=== PATIENT | male | born 2000 | race Caucasian/White ===

== ENCOUNTER 2021-03-09 11:23 | Inpatient (IN) | payer MEDICAID, SELFPAY ==
[~2021-03-09] VITALS: Ht 180.3 cm; Wt 68.0 kg
[2021-03-09 11:23] VITALS: BP 112/56
--- NOTE | 2021-03-09 11:23 | NUR ---
BIBA TO BED 7
[2021-03-09] MEDS ORDERED: NACL 0.9% 1,000 ML IV ONE (11:30)
--- NOTE | 2021-03-09 11:50 | NUR ---
20 Y/O M BIBA FROM COUSIN'S HOUSE, PATIENT PRESENTS TO ED WITH TONIC CLONIC SEIZURE WITNESSED FOR 1 MINUTE. PT STATES HE HAS NO MEMORY OF WHAT HAPPENED BEFORE AND AFTER. DENIES N/V/D; SKIN IS PINK/WARM/DRY; AAOX2 UNABLE TO AMBULATE AT THIS TIME, RESTLESS AND TREMBLING; LUNGS CLEAR BL; HR EVEN AND TACHY 112; PT DENIES ANY FEVER, SOB, OR COUGH AT THIS TIME; PATIENT STATES PAIN OF 8/10 AT THIS TIME, CHEST PRESSURE; VSS; PATIENT POSITIONED FOR COMFORT; HOB ELEVATED; BEDRAILS UP X2; BED DOWN. ER MD MADE AWARE OF PT STATUS. GCS 14. NO MOUTH INJURIES UPON INSPECTION, PT DOES HAVE WHITE PUSTULES ON TONGUE. MINOR LAC ON R CHEEK. PMH: ASTHMA NKA MED: DENIES
[2021-03-09 12:21] LABS: BASOPHILS % (AUTO) 0.6 % (0.0-2.0); EOSINOPHILS # (AUTO) 0.1 K/uL (0-0.4); EOSINOPHILS % (AUTO) 2.2 % (0.0-4.0); HEMATOCRIT 39.6 % (36-52); HEMOGLOBIN 13.3 g/dL (12.0-18.0); LYMPHOCYTES # (AUTO) 2.1 K/uL (2.0-11.5); LYMPHOCYTES % (AUTO) 33.5 % (20.5-51.1); MEAN CORPUSCULAR HEMOGLOBIN 30 pg (27-31); MEAN CORPUSCULAR HGB CONC 34 g/dL (33-37); MEAN CORPUSCULAR VOLUME 87.4 fL (80-94); MONOCYTES # (AUTO) 0.4 K/uL (0.8-1.0); MONOCYTES % (AUTO) 6.3 % (1.7-9.3); NEUTROPHILS # (AUTO) 3.5 K/uL (1.8-7.7); NEUTROPHILS % (AUTO) 57.4 % (42.2-75.2); PLATELET COUNT (AUTO) 182 K/uL (140-450); RED BLOOD CELL COUNT(AUTO) 4.53 MIL/uL (4.20-6.10); RED CELL DISTRIBUTION WIDTH 12.7 % (11.6-13.7); WHITE BLOOD COUNT (AUTO) 6.2 K/uL (4.8-10.8)
--- NOTE | 2021-03-09 12:43 | NUR ---
technical designer at bedside.
[2021-03-09 12:45] LABS: ALBUMIN 3.9 g/dL (3.4-5.0); ANION GAP 11.5 (8-16); ASPARTATE AMINOTRANSFERASE 13 U/L (15-37); CHLORIDE 106 mmol/L (98-107); GFR ARICAN-AMERICAN 120 mL/min (>90); GLUCOSE 95 mg/dL (74-106); POTASSIUM 3.5 mmol/L (3.5-5.1); SODIUM SERUM 141 mmol/L (136-145); TOTAL BILIRUBIN 0.4 mg/dL (0.0-1.0); UREA NITROGEN, BLOOD 10 mg/dL (7-18)
[2021-03-09 12:46] LABS: ACETAMINOPHEN < 0.5 ug/ml (10-30); SALICYLATE < 2.8 mg/dL (2.8-20.0)
[2021-03-09] MEDS ORDERED: ONDANSETRON 4 MG/2 ML VIAL IVP PRN (13:25)
[2021-03-09] MEDS ORDERED: ZOLPIDEM 5 MG TAB PO PRN (13:25)
[2021-03-09] MEDS ORDERED: DOCUSATE SODIUM 100 MG GELCAP PO PRN (13:25)
[2021-03-09] MEDS ORDERED: ACETAMINOPHEN 325 MG TAB PO PRN (13:25)
[2021-03-09] MEDS ORDERED: LORazepam 2 MG/ML VIAL IM/IVP PRN (13:25)
[2021-03-09 13:32] LABS: BARBITURATE, URINE NEGATIVE ng/ml (NEG <=200); BENZODIAZEPINE, URINE NEGATIVE ng/mL (NEG <=200); COCAINE, URINE NEGATIVE ng/mL (NEG <=300); PHENCYCLIDINE SCREEN,URINE NEGATIVE ng/mL (NEG <=25)
[2021-03-09] MEDS: NACL 0.9% 1,000 ML IV SCH (13:46)
--- NOTE | 2021-03-09 13:48 | NUR ---
PT TAKEN VIA GURNEY TO CT
--- NOTE | 2021-03-09 13:56 | NUR ---
Patient returned from CT scan.
[2021-03-09 14:39] LABS: CHOL/HDL RATIO 2.6 (1-4.5); FREE T4 (FREE THYROXINE) 1.01 ng/dL (0.76-1.46); MAGNESIUM 2.1 mg/dL (1.8-2.4); PHOSPHORUS 1.4 mg/dL (2.5-4.9); THYROID STIMULATING HORMONE 4.82 uIU/mL (0.34-3.74)
[2021-03-09 14:42] LABS: PROTHROMBIN TIME 10.8 secs (10.8-13.4)
[2021-03-09 14:51] LABS: APPEARANCE,URINE CLEAR (CLEAR); BILIRUBIN,URINE NEGATIVE (NEGATIVE); BLOOD, URINE NEGATIVE (NEGATIVE); COLOR,URINE YELLOW (YELLOW); LEUKOCYTE ESTERASE ,URINE NEGATIVE (NEGATIVE); NITRITE, URINE NEGATIVE (NEGATIVE); PH,URINE 8.5 (5.0-9.0); UGLUCOSE NEGATIVE (NEGATIVE)
[2021-03-09 15:06] LABS: CANNABINOID, URINE POSITIVE ng/mL (NEG <=50); OPIATE, URINE NEGATIVE ng/mL (NEG <=2000)
--- NOTE | 2021-03-09 15:43 | NUR ---
SPOKE WITH CHI FROM POISON CONTROL, UPDATED PT STATUS. WAS TOLD TO FOLLOW UP WITH PSYCH.
--- NOTE | 2021-03-09 16:28 | NUR ---
Patient appears to be resting comfortably in bed. Vital Signs within normal limits. Respirations even and unlabored.
--- NOTE | 2021-03-09 17:00 | NUR ---
RECEIVED PATIENT REPORT FROM ER NURSE OVER THE PHONE. AWAITING FOR PATIENT TO ARRIVE TO THE UNIT.
[2021-03-09 17:15] VITALS: BP 104/60
--- NOTE | 2021-03-09 17:15 | NUR ---
RECEIVED PATIENT FROM ER NURSE VIA KAYA. PT ADMITTED FOR TRAMADOL OVERDOSE. AOX4, ABLE TO MAKE NEEDS KNOWN. RESPIRATIONS EVEN AND UNLABORED. NO S/S OF DISTRESS NOTED. SKIN IS WARM, DRY, AND INTACT. IV SITE ON 18 G LAC. INTACT AND PATENT. IVF FLUID INFUSING WELL. ABDOMEN SOFT, FLAT, AND NON-DISTENDED. BOWEL SOUNDS ACTIVE ALL QUADRANTS. PATIENT DENIES PAIN AT THE MOMENT. PLAN OF CARE DISCUSSED. SEIZURE PRECAUTIONS IN PLACE. SAFETY PRECAUTIONS IN PLACE. CALL LIGHT WITHIN REACH. WILL CONTINUE TO MONITOR.
--- NOTE | 2021-03-09 17:22 | NUR ---
Patient will be admitted to care of MUNA ARMSTRONG. Admited to TELEMETRY. Will go to room 124B. Belongings list completed. Report to JJ SANDOVAL.
--- NOTE | 2021-03-09 19:30 | NUR ---
ENDORSED TO LOAD OUT PERSON NURSE FOR CONTINUITY OF CARE. PT IS STABLE.
--- NOTE | 2021-03-09 19:45 | NUR ---
RECEIVED REPORT FROM DAYSHIFT NURSE AT PATIENTS BEDSIDE. PT SEEN SLEEPING IN BED, ALERT TO NAME. ANOx4, MAKES NEEDS KNOWN. ON ROOM AIR, VISIBLE CHEST RISE AND FALL. DENIES SOB OR DIFFICULTY BREATHING. CONNECTED TO CONTINUOUS CARDIAC MONITORING. LEFT AC 18G, FLUSHED AND PATENT, ASYMPTOMATIC, INFUSING NS@ 100ML/HR. PT CONTINENT, ABLE TO AMBULATE TO REST ROOM. DINNER AT BEDSIDE. PT ORIENTED TO TREATMENT PLAN, VERBALIZES UNDERSTANDING. PT DENIES PAIN, ABLE TO EXPLAIN EVENTS PRIOR TO ADMISSION. ORIENTED TO CALL LIGHT. BED LOCKED AND IN LOWEST POSITION, SIDE RAILS UP, SEIZURE PRECAUTIONS IN PLACE. WILL CONTINUE TO MONITOR.
[2021-03-09 20:00] VITALS: BP 103/53
--- NOTE | 2021-03-09 20:35 | NUR ---
PT's MOTHER AT BEDSIDE. UPDATED ON TREATMENT PLAN AND ADDRESSED ALL QUESTIONS AND CONCERNS.
[2021-03-09] MEDS: SODIUM PHOS / POTASSIUM PHOS 1 PKT PDR PO SCH (20:44)
--- NOTE | 2021-03-09 21:30 | NUR ---
PT AMBULATED TO RESTROOM AND BACK IN BED WITHOUT INCIDENT. SCHEDULED MEDICATION GIVEN, PT VERBALIZED UNDERSTANDING OF INDICATION. PT SELF TURNS. ALL NEEDS MET AT THIS TIME.
[2021-03-10] VITALS: BP 105/58
--- NOTE | 2021-03-10 00:15 | NUR ---
NO SIGNS OF DISTRESS, PT RESTING WELL IN BED, CURRENTLY SLEEPING. AWAKES TO TOUCH, ALL VITALS WITHIN RANGE. SAFETY MEASURES IN PLACE, WILL CONTINUE TO MONITOR.
[2021-03-10] MEDS: NACL 0.9% 1,000 ML IV SCH ×2 (01:58→10:00)
--- NOTE | 2021-03-10 02:00 | NUR ---
REPLACED IV BAG. LEFT AC 18G INTACT, NO SYMPTOMS. PT DENIES PAIN. PT REMAINS ON ROOM AIR. NO SIGNS OF DISTRESS, PT MAKES NEEDS KNOWN. NO SIGNS OF SEIZURE ACTIVITY. CONTINUE FREQUENT ROUNDS.
[2021-03-10 04:00] VITALS: BP 108/55
--- NOTE | 2021-03-10 04:23 | NUR ---
ALL VITAL SIGNS WITHIN RANGE. NO STATED PROBLEMS. PT RESTING WELL, REPORTS BACK PAIN BUT NOT ASKING FOR MEDICATIONS AT THIS TIME. SAFETY MEASURES IN PLACE, CALL LIGHT WITHIN REACH.
[2021-03-10 05:27] LABS: BASOPHILS % (AUTO) 0.3 % (0.0-2.0); EOSINOPHILS # (AUTO) 0.2 K/uL (0-0.4); EOSINOPHILS % (AUTO) 1.7 % (0.0-4.0); HEMATOCRIT 38.4 % (36-52); HEMOGLOBIN 13.3 g/dL (12.0-18.0); LYMPHOCYTES # (AUTO) 2.2 K/uL (2.0-11.5); LYMPHOCYTES % (AUTO) 24.4 % (20.5-51.1); MEAN CORPUSCULAR HEMOGLOBIN 30 pg (27-31); MEAN CORPUSCULAR HGB CONC 35 g/dL (33-37); MEAN CORPUSCULAR VOLUME 85.2 fL (80-94); MONOCYTES # (AUTO) 0.5 K/uL (0.8-1.0); MONOCYTES % (AUTO) 5.4 % (1.7-9.3); NEUTROPHILS # (AUTO) 6.3 K/uL (1.8-7.7); NEUTROPHILS % (AUTO) 68.2 % (42.2-75.2); PLATELET COUNT (AUTO) 175 K/uL (140-450); RED CELL DISTRIBUTION WIDTH 12.7 % (11.6-13.7); WHITE BLOOD COUNT (AUTO) 9.2 K/uL (4.8-10.8)
[2021-03-10 05:43] LABS: ANION GAP 9.4 (8-16); CARBON DIOXIDE 29.5 mmol/L (21-32); CREATININE 0.9 mg/dL (0.6-1.3); POTASSIUM 3.9 mmol/L (3.5-5.1)
[2021-03-10 05:46] LABS: PHOSPHORUS 3.6 mg/dL (2.5-4.9)
--- NOTE | 2021-03-10 07:05 | NUR ---
INTRODUCED TO DAYSHIFT NURSE. PT DENIES ANY COMPLAINTS. ALL SAFETY MEASURES IN PLACE. REPORT GIVEN FOR CONTINUITY OF CARE.
[2021-03-10 08:00] VITALS: BP 110/102
[2021-03-10] MEDS: SODIUM PHOS / POTASSIUM PHOS 1 PKT PDR PO SCH (09:00)
--- NOTE | 2021-03-10 09:18 | NUR ---
PATIENT HAS BEEN SCREENED AND CATEGORIZED LOW NUTRITION RISK. PATIENT WILL BE SEEN WITHIN 7 DAYS OF ADMISSION. 03/16/[address]
--- NOTE | 2021-03-10 09:59 | NUR ---
PLACED CALL INTO [facility] TO INFORM OF EEG ORDER PLACED YESTERDAY, THERE WAS NO ANSWER AND THE MAIL BOX WAS FULL SO I WAS UNABLE TO LEAVE A MESSAGE WITH PT INFORMATION
--- NOTE | 2021-03-10 11:28 | NUR ---
CALLED [facility] AGAIN TRANSFERRED TO FULL VOICEMAIL, CALLED [facility] BACK AND TRIED TO SPEAK TO SOMEONE BUT WAS AGAIN AUTOMATICALLY TO SAME VOICEMAIL. SPOKE WITH RN TO IN FOR HER THAT I HAVE NOT BEEN ABLE TO GET IN CONTACT OR LEAVE V/M FOR PTS EEG.
[2021-03-10 12:00] VITALS: BP 110/65
--- NOTE | 2021-03-10 15:21 | NUR ---
Called [facility] again with no answer and voicemail full, spoke with Jerrell, informed him that I let Mal know and asked if there was further action we could take in contacting [facility].
--- NOTE | 2021-03-10 15:48 | NUR ---
Spoke with [facility], they will be here with in the hr for EEG.Jerrell, RN, and aware.
[2021-03-10 16:00] VITALS: BP 97/56
--- NOTE | 2021-03-10 17:30 | NUR ---
EEG DONE PT. AWAKE ALERT COOPERATIVE.
--- NOTE | 2021-03-10 18:15 | NUR ---
AWAKE AND ALERT HAS 2 VISITER AT BED SIDE. HE RECIVED PORK DINNER WHICH HE CAN'T EAT, WILL ORDER HIM TURKEY SANWISH.
--- NOTE | 2021-03-10 19:30 | NUR ---
REPORT GIVE TO LISA SANDOVAL,
--- NOTE | 2021-03-10 19:50 | NUR ---
[facility] SERVED PT PORK CHOPS FOR DINNER BUT PORK IS AGAINST PT's ADVENTISM. BAR HOST CALLED TO PROVIDE TURKEY SANDWICHES. WILL CARRY OUT.
--- NOTE | 2021-03-10 19:54 | NUR ---
RECEIVED REPORT FROM DAYSHIFT NURSE AT BEDSIDE. PT's FAMILY MEMBERS HERE TO VISIT. ASKED KINDLY TO COME BACK AFTER REPORT (1999). PT ANOx4, ON ROOM AIR. DENIES PAIN/SOB. LEFT AC 18G INTACT, INFUSING IVF @ 100ML/HR. PT CONTINENT, AMBULATES TO RESTROOM. SEIZURE PRECAUTIONS IN PLACE, PT ORIENTED TO TREATMENT PLAN AND EDUCATED ON MEDICATION INDICATIONS AND RISK OF MIXING MEDS WITH RECREATIONAL DRUGS. VERBALIZED UNDERSTANDING. SAFETY MEASURES IN PLACE, CALL LIGHT IN HAND. WILL CONTINUE TO MONITOR.
[2021-03-10 20:00] VITALS: BP 104/62
[2021-03-11] VITALS: BP 116/63
[2021-03-11] MEDS: NACL 0.9% 1,000 ML IV SCH ×2 (00:06→15:25)
[2021-03-11] MEDS: MORPHINE SULFATE 2 MG/ML SYR IVP PRN ×3 (00:07→08:22)
--- NOTE | 2021-03-11 00:12 | NUR ---
PT COMPLAINING OF PAIN AND UNABLE TO SLEEP. LEFT SHOULDER PAIN THAT RADIATES TO BACK, 03/29. ASKING FOR MEDICATIONS. CARRIED OUT. SAFETY MEASURES IN PLACE.
--- NOTE | 2021-03-11 03:10 | NUR ---
PT REQUESTING MORE PAIN MEDS, REPORTS MORPHINE HELPED BUT PAIN CAME BACK. LEFT SHOULDER PAIN 03/29. IVP PRN MORPHINE GIVEN.
[2021-03-11 04:00] VITALS: BP 110/62
[2021-03-11 05:37] LABS: BASOPHILS % (AUTO) 0.4 % (0.0-2.0); EOSINOPHILS # (AUTO) 0.1 K/uL (0-0.4); EOSINOPHILS % (AUTO) 1.5 % (0.0-4.0); HEMATOCRIT 39.6 % (36-52); HEMOGLOBIN 13.4 g/dL (12.0-18.0); LYMPHOCYTES # (AUTO) 2.3 K/uL (2.0-11.5); LYMPHOCYTES % (AUTO) 25.2 % (20.5-51.1); MEAN CORPUSCULAR HEMOGLOBIN 30 pg (27-31); MEAN CORPUSCULAR HGB CONC 34 g/dL (33-37); MEAN CORPUSCULAR VOLUME 87.1 fL (80-94); MONOCYTES # (AUTO) 0.7 K/uL (0.8-1.0); MONOCYTES % (AUTO) 7.5 % (1.7-9.3); NEUTROPHILS # (AUTO) 5.9 K/uL (1.8-7.7); NEUTROPHILS % (AUTO) 65.4 % (42.2-75.2); PLATELET COUNT (AUTO) 201 K/uL (140-450); RED BLOOD CELL COUNT(AUTO) 4.54 MIL/uL (4.20-6.10); RED CELL DISTRIBUTION WIDTH 12.6 % (11.6-13.7)
--- NOTE | 2021-03-11 05:54 | NUR ---
RESTING WELL, NO SIGNS OF DISTRESS. VISIBLE CHEST RISE AND FALL. PT ASLEEP. BED LOCKED AND IN LOWEST POSITION. IV INTACT WITH IVF. CONTINUE FREQUENT ROUNDS.
[2021-03-11 06:22] LABS: PHOSPHORUS 3.5 mg/dL (2.5-4.9)
[2021-03-11 06:32] LABS: ANION GAP 8.1 (8-16); CARBON DIOXIDE 29.7 mmol/L (21-32); CREATININE 0.9 mg/dL (0.6-1.3); POTASSIUM 3.8 mmol/L (3.5-5.1)
--- NOTE | 2021-03-11 07:35 | NUR ---
ENDORSED TO DAYSHIFT NURSES AT BEDSIDE, SAFETY MEASURES IN PLACE. PT STABLE AT THIS TIME.
--- NOTE | 2021-03-11 07:38 | NUR ---
RECEIVED REPORT FROM GROCERY CARRIER NURSE. NURSE STATES THAT PATIENT WAS STABLE ALL NIGHT. SHE REPORTS PT IS AA&O X 4. PT ON RA. PT IS AMBULATORY AND INDEPENDENT. PT REPORTS 2 VOIDS LAST NIGHT. PT HAS PATENT IV IN LEFT AC 18 GAUGE RUNNING AT 40 ML. PT WAS ASLEEP DURING BEDSIDE REPORT. WILL CONTINUE TO MONITOR AND PERFORM FREQUENT ROUNDING.
[2021-03-11 08:00] VITALS: BP 104/94
--- NOTE | 2021-03-11 08:26 | NUR ---
ADMINISTERED MORPHINE PRN AT 0825 FOR PAIN OF 8/10 IN BACK AND CHEST. VITALS WERE BP 106/98, HR 76, O2 95% ON RA, RR 16. WILL CONTINUE TO MONITOR AND REASSESS PAIN IN 1 HOUR.
[2021-03-11 12:00] VITALS: BP 137/79
[2021-03-11] MEDS: HYDROcodone/APAP 5/325 MG 1 TAB TAB PO PRN ×2 (12:59→16:18)
--- NOTE | 2021-03-11 13:00 | NUR ---
ADMINISTERED NORCO PRN FOR BACK PAIN 01/27. WILL REASSESS IN 1 HOUR AND CONTINUE TO PERFORM FREQ ROUNDS.
--- NOTE | 2021-03-11 14:00 | NUR ---
REASSESSED PT AFTER ADMINISTERING NORCO PRN FOR BACK PAIN. PT STATES PAIN 08/29. WILL CONTINUE TO MONITOR.
--- NOTE | 2021-03-11 14:52 | NUR ---
DC PLANNING: SPOKE WITH PATIENT AT BEDSIDE. PATIENT ADMITTED FOR TRAMADOL OD WITH WITNESSED SEIZURE IN ED. PATIENT ASKED CM ABOUT GETTING PRESCRIPTION FOR NARCOTICS FOR PAIN IN LEFT ARM. H/O [facility] 3 YEARS AGO WITH [facility]. CM TOLD PATIENT TO FOLLOW UP WITH HIS PCP SO THE ARM CAN BE ASSESSED AND HIS PCP CAN DECIDE HOW TO PROCEED. PATIENT LIVES WITH HIS FAMILY IN A 2 STORY HOUSE AND HAS NO MOBILITY OR CARE ISSUES. NO HISTORY OF HOME HEALTH OR DME, NO DC NEEDS ASIDE FROM PCP FOLLOW UP. PLAN IS TO DC HOME WHEN CLEARED. CM WILL FOLLOW FOR NEEDS.
[2021-03-11 16:00] VITALS: BP 110/73
--- NOTE | 2021-03-11 16:20 | NUR ---
ADMINISTERED NORCO ORDERED FOR PRN PAIN. PT STATES HE HAS BACK PAIN 01/27. PT TOLERATED MED WELL. WILL REASSESS FOR PAIN AND CONTINUE TO MONITOR.
--- NOTE | 2021-03-11 17:20 | NUR ---
REASSESSED PT PAIN AFTER NORCO ADMIN FOR BACK PAIN. PT STATES PAIN 2/10 CURRENTLY. PT IS STABLE AND RELAXED. WILL CONTINUE TO MONITOR.
--- NOTE | 2021-03-11 18:20 | NUR ---
DISCHARGED INSTRUCTIONS GIVEN TO THE PATIENT AT THE BEDSIDE, ENCOURAGED TO FOLLOW UP WITH PCP WITHIN 3-5 DAYS AFTER DISCAHRGE AND ENCOURAGED TO SEEK MEDICAL HELP IN CASE OF EMERGENCIES. ENCOURAGED TO FOLLOW UP WITH NEUROLOGIST AND BRING A COPY OF EEG RESULT, INSTRUCTED THAT PT UNABLE TO DRIVE TO EPISODES OF SEIZURE. REMOVED ID BANDS, IV INTACT AND COMPLETE NO BLEEDING, PT TOOK ALL HIS BELONGINGS AND PT IS DISCHARGE TO HOME, ESCORTED TO FRONT LOBBY ACCOMPANIED BY FAMILY. PT IS STABLE.
== END 2021-03-11 18:20 | disposition home or self-care (01) | DRG 812 ==
LOC: MED 11:23 → MTU 13:27
PROVIDERS: ADMIT Family Medicine; ATTEND Family Medicine
PROC: 4A00X4Z Measurement of Central Nervous Electrical Activity, External Approach (ICD-10-PCS; principal; 2021-03-11)
DX: T40.421A Poisoning by tramadol, accidental (unintentional), initial encounter (principal); E83.39 Other disorders of phosphorus metabolism; R56.9 Unspecified convulsions; E83.51 Hypocalcemia; J45.909 Unspecified asthma, uncomplicated; Z20.822 Contact with and (suspected) exposure to COVID-19; F12.10 Cannabis abuse, uncomplicated; F11.20 Opioid dependence, uncomplicated; Y92.89 Other specified places as the place of occurrence of the external cause
CPT/HCPCS: 36415; 70450; 71045; 73090; 80048; 80053; 80305; 81003; 82150; 82553; 83036; 83690; 83735; 83880; 84100; 84439; 84443; 84484; 85025; 85610; 85730; 87081; 93005; 96360; 96361; 99291; G0480; G0482; J2270; J7030